=== PATIENT | female | born 1995 | race Caucasian/White ===

== ENCOUNTER → 2021-07-13 15:34 | Outpatient (CLI) | payer OTHER, MEDICAID, SELFPAY ==
[2021-07-13 16:27] LABS: COVID19 -Nasal RAPID Negative (Negative)
== END ==
PROVIDERS: Visit Provider Nurse Practitioner Family
DX: Z20.822 Contact with and (suspected) exposure to COVID-19 (principal); R11.10 Vomiting, unspecified; R19.7 Diarrhea, unspecified
CPT/HCPCS: 87635

== ENCOUNTER → 2021-10-10 12:57 | Outpatient (ROUT) | payer OTHER, MEDICAID, SELFPAY | PROVIDERS: Visit Provider Nurse Practitioner Obstetrics & Gynecology | DX: Z34.90 Encounter for supervision of normal pregnancy, unspecified, unspecified trimester (principal); Z36.85 Encounter for antenatal screening for Streptococcus B; Z3A.36 36 weeks gestation of pregnancy | CPT/HCPCS: 87081 ==

== ENCOUNTER 2021-10-26 05:15 | Inpatient (IN) | payer OTHER, MEDICAID, SELFPAY ==
--- NOTE | 2021-10-26 06:20 | P.HPOB_ITS ---
OB HPI Date/Time Date of admission: 10/26/21 Date Patient Seen: 10/26/21 Time Patient Seen: 06:00 History of Present Condition Chief complaint: OBS : 1 Para: 0 Estimated Date of Delivery: 11/03/21 Estimated Gestational Age (weeks): 38.6 Narrative: Alena Wynne is a 26 year old female @ [id number]. Has noticed leaking clear/pink fluid since 1350 yesterday. Contractions started last night and slowly progressed in frequency and intensity. Has been breathing through regular contractions since 0400. +FM. No VB. Uncomplicated PN care w/ CNM. Transferred in from [place] @ 27wks EG. Medical history significant for hypertrophic cardiomyopathy with cardiology evaluation @ 34wks-> okay with routine labor/ at [facility]. Received COVID vaccine x2, influenza vaccine, tdap vaccine (08/15/21) and Rhogam (08/15/21) in . No URI sx. History of Present care: good care, initiated at week # (7), number of visits (11) and pounds weight gain (37) Dating criteria: LMP confirmed by 1st trimester US Ultrasounds: normal mid trimester US Obstetrical complications: none Medical complications: cardiovascular (Hypertrophic cardiomyopathy) Preadmission Labs Blood type: A (-) negative -: Antibody screen: negative, GBS status: negative, HBsAG: negative, HIV: negative and RPR/VDLR: negative -: Chlamydia screen: not detected and Gonorrhea screen: not detected -: Rubella: immune and Varicella: immune HCT: 34.3 HCAB: negative Cell-free DNA: DECLINED 1 hr GTT: 96 Evaluation Evaluation Baseline heart rate: 130 Variability: Moderate (11-25) monitor accelerations: Present Monitor Decelerations: Absent Contraction Frequency (minutes): 4 Uterine Contraction Intensity: Moderate Status: Category l Dilation (cm): 2 Effacement (%): 80 Dilation: 1-2 cm Effacement: >/=80% station: -2 Position of cervix: posterior Consistency: medium Zendejas score: 6 PFSH Family History (Updated 10/26/21 @ 07:01 by Allyn Perez CNM) Father Diabetes mellitus Cancer Hypertension Social History Smoking Status: Never smoker Meds Home Medications and Allergies Home Medications Medication Instructions Recorded Confirmed Type No Known Home Medications 07/13/21 10/26/21 History Allergies Allergy/AdvReac Type Severity Reaction Status Date / Time No Known Drug Allergies Allergy Unverified 07/13/21 15:38 Review of Systems Review of Systems ROS: Yes All systems reviewed with the patient and are negative except as otherwise documented OB Exam Resp Effort & Inspection: normal respiratory effort Auscultation: clear to auscultation bilaterally Cardio Rate: regular rate Rhythm: regular rhythm Heart Sounds: S1 normal and S2 normal Presentation: vertex Objective Labs Result Diagrams: 10/26/21 06:18 Labs: SARS-CoV-2: POSITIVE Assessment and Plan Assessment and Plan Assessment and Plan narrative: A: Term nullipara PROM x 16 hours without sx of infection Early labor No indication for GBS prophylaxis COVID POSITIVE Cat I FHR P: Admit routine orders with droplet precautions. Intermittent auscultation. Labor support PRN. Will closely monitor fluid volume status in labor and PP. Reassess in 4-6 hours or agustín, PRN. Will notify OB back-up of patient admit status and POC.
[2021-10-26 06:23] LABS: COVID19 - ADMIT (NP swab/PCR) POSITIVE (Negative)
[2021-10-26 06:33] VITALS: BP 126/79
[2021-10-26 12:04] LABS: Add Manual Diff / Slide Review NO; Basophils Absolute Auto 0 /uL (0-100); Basophils Percent Auto 0.3 % (0-2); Eosinophils Absolute Auto 0 /uL (0-450); Eosinophils Percent Auto 0.1 % (2-4); Hematocrit 36.8 % (36-46); Hemoglobin 12.3 g/dL (12.0-16.0); Lymphocytes Absolute Auto 2100 /uL (1100-4500); Lymphocytes Percent Auto 14.6 % (25-40); Mean Corpuscular HGB Conc 33.5 % (30-36); Mean Corpuscular Hemoglobin 30.2 PG (26-34); Mean Corpuscular Volume 90.2 fL (80-100); Monocytes Absolute Auto 800 /uL (0-900); Monocytes Percent Auto 5.8 % (3-14); Neutrophils Absolute Auto 11300 /uL (1500-7000); Neutrophils Percent Auto 79.2 % (50-75); Platelet Count 150 X10^3/uL (150-400); Red Blood Cell Count 4.08 X10^6/uL (4.0-5.2); Red Cell Distribution Width 12.9 % (11.6-14.8); White Blood Cell Count 14.2 X10^3/uL (4.5-11.0)
--- NOTE | 2021-10-26 12:12 | PM.OBPNLAB ---
Date/Time Date Patient Seen: 10/26/21 Time Patient Seen: 12:13 Pain Control Comments: States contractions have slowedand is now open to labor augmentation. VS: BP 121/66, HR 101, T 98.2F Pelvic Exam Dilation (cm): 2 Effacement (%): 80 station: -2 Amniotic membrane status: Leaking Contractions Contractions on admission: regular Monitor mode: External Pitocin rate (mU/min): 0 Contraction frequency (min): 4 Contraction duration (min): 1 Contraction pattern: Regular Contraction intensity: Moderate Status status: Category l Heart Rate Baseline: 125 Comments: Reassuring FHR by intermittent auscultation Assessment and Plan Assessment: other (PROM, early labor) Plan: begin patient augmentation Comments: Recommend pitocin augmentation and patient consents. Pitocin, per protocol. Reassess in 4 hours or sooner, PRN.
[2021-10-26] MEDS: LACTATED RINGERS 1,000 ML 100 ML IV (12:55)
[2021-10-26] MEDS: OXYTOCIN PREMIX 30 UNIT/500 ML PLAST..BAG IV (13:38)
--- NOTE | 2021-10-26 17:22 | PM.OBPNLAB ---
Date/Time Date Patient Seen: 10/26/21 Time Patient Seen: 17:00 Pain Control Pain control: tolerating well (Ambultaing in room, now breathing through stronger contractions) Comments: VS: BP 121/85, HR 73bpm, T 36.5C Temporal Pelvic Exam Effacement (%): 80 station: -2 Amniotic membrane status: Leaking Comments: CE deferred Contractions Monitor mode: External Pitocin rate (mU/min): 9 Contraction frequency (min): 3 Contraction duration (min): 1 Contraction pattern: Regular Contraction intensity: Moderate Status status: Category l Heart Rate Baseline: 135 Monitor Accelerations: Present Monitor Decelerations: Absent Monitor Variability: Moderate Assessment and Plan Assessment: other (appropaching active labor, pitocin augmentation of PROM) Comments: Continue pitocin titration, per protocol. CE in 2 hours (from beginning of strong contractions). labor support, PRN.
--- NOTE | 2021-10-26 19:42 | PM.OBPNLAB ---
Date/Time Date Patient Seen: 10/26/21 Time Patient Seen: 19:10 Pain Control Pain control: tolerating well (breathing through and moaning with strong contractions) Comments: Sitting up on toilet and CUB chair. VS: 121/85, HR 73bpm, T 36.9C Temporal Pelvic Exam Dilation (cm): 5 Effacement (%): 80 station: -2 Amniotic membrane status: Leaking Contractions Contractions on admission: regular Monitor mode: External Pitocin rate (mU/min): 10 Contraction frequency (min): 3 Contraction duration (min): 1 Contraction pattern: Regular Contraction intensity: Moderate Status status: Category l Heart Rate Baseline: 135 Monitor Accelerations: Present Monitor Decelerations: Absent Monitor Variability: Moderate Assessment and Plan Assessment: active labor Plan: continuous present management Comments: Reassess in 4 hours or sooner, PRN.
--- NOTE | 2021-10-26 20:37 | P.PN_ITS ---
Subjective Subjective Date Patient Seen: 10/26/21 Time Patient Seen: 08:26 Interval history: Called by RN for recurrent variable decelerations. Pt remained sitting up in CUB chair. CNM suggested position change to hands and knees and variable decelerations resolved prior to CNM arrival. Patient continues to breathe through strong, regular contractions, coping well. Now feeling more low back pain. Exam Vital Signs (past 8 hours): BP: 121/85, HR 73bpm, T 36.9C Temporal FHR: baseline 140bpm, moderate variability, accels present, early and variable decelerations present. Ctx: Q 3 minutes, lasting 1 minute, strong. Pitocin @ 10mu/min. Continues to leak scant amounts of clear fluid with moderate bloody show. Manual OB Exam: dilated 5, effaced (90%) and station -2 Presentation: vertex Estimated Weight (lbs): 7 Amniotic Fluid: clear Objective Labs Result Diagrams: 10/26/21 06:18 Labs: Laboratory Results - last 24 hr 10/26/21 10/26/21 10/26/21 05:30 06:18 06:18 WBC 14.2 H RBC 4.08 Hgb 12.3 Hct 36.8 MCV 90.2 MCH 30.2 MCHC 33.5 RDW 12.9 Plt Count 150 Neut % (Auto) 79.2 H Lymph % (Auto) 14.6 L [place] % (Auto) 5.8 Eos % (Auto) 0.1 L Baso % (Auto) 0.3 Neut # (Auto) 78110 H Lymph # (Auto) 2100 [place] # (Auto) 800 Eos # (Auto) 0 Baso # (Auto) 0 SARS-CoV-2 (PCR) Positive H Blood Type A Negative Antibody Screen Negative [facility] Family History (Updated 10/26/21 @ 07:01 by Allyn Perez CNM) Father Diabetes mellitus Cancer Hypertension Social History Smoking Status: Never smoker Assessment & Plan Assessment & Plan narrative: A: Term nulipara Active labor w/ pitocin augmentation PROM x 30 hours without sx of infection Cat II FHR, overall reassuring P: Continue pitocin titration to adequate contraction pattern. Encourage position changes as tolerated by FHR. Reassess in 4 hours or sooner, PRN. Time Spent With Patient Critical Care time: I spent a total of [] minutes of critical care time on this patient's care t dillon; this time is exclusive of procedural time.
[2021-10-26] MEDS: fentaNYL 100 MCG/2 ML INJ IV (21:33)
--- NOTE | 2021-10-27 01:17 | P.PCNOB_ITS ---
Labor & Delivery Delivery date: 10/27/21 Intrapartal Events: None Cervical ripening method: none Induction method: per pitocin protocol Delivery monitor: external FHT and external uterine Route of delivery: Episiotomy description: None L&D Laceration Description: Perineal - 1st Degree Delivery repair: chromic (3.0) Estimated blood loss (mL): 125 Anesthesia Type: Other (Fentanyl IV (single dose)) Complications: Alena labored well with pitocin augmentation (max dose 10mu/min) and a single dose of IV fentanyl. Was presumed complete with spontaneous urge to push @ 1130. Pushed well with coaching and encouragement. NSVB of a vigorous baby boy in MARGOT position, sommersaulted through a double loose nuchal cord. [place] was placed on maternal abdomen for drying and skin to skin. After cessation of pulsation, the cord was double clamped nad cut. Remaining 30 units of pitocin in 500mL LR was increased to 300mL/hr for AMTSL. Cord blood sample was collected. gentle cord traction and single maternal push led to spontaneous, Schultze delivery of an apparently intact placenta, membranes and 3VC. Fundus immediately firm and bleeding stable. Inspection revealed a 1st degree perineal split extending to the anus. Repair was in the usual fashion with 3.0 chromic under 2% lidocaine local. QBL 125mL. Both mother and baby stable and skin to skin as I left the room. [place] Baby 1: gender: Male Presentation: vertex Position: Right Occiput Anterior Placenta delivery description: Spontaneous Cord Vessel Description: 3 Vessels and Nuchal Cord (x2) score (1 min): 9 score (5 min): 9 weight: 2.945 kg Plan for aftercare: Routine care
[2021-10-27] MEDS: KETOROLAC 30 MG/ML VIAL IV (02:04)
[2021-10-27] MEDS: ACETAMINOPHEN 325 MG TABLET 650 MG PO (02:04)
[2021-10-27] MEDS: DERMOPLAST SPRAY 20% 60 ML 1 SPRAY TOP (03:23)
[2021-10-27] MEDS: LANOLIN OINT 7 GM 1 APPLIC TOP (03:23)
[2021-10-27] MEDS: RHO(D) IMMUNE GLOBULIN 1,500 UNIT SYRINGE 1500 UNIT IM (13:07)
[2021-10-27] MEDS: DOCUSATE 100 MG CAPSULE PO (21:09)
--- NOTE | 2021-10-28 07:02 | P.DS_ITS ---
Discharge Providers Provider Date of admission: 10/26/21 05:15 Discharge Date: 10/28/21 Consults: 10/28/21 01:08 Consult to Interpretative Dancer Routine Comment: Discharge provider: Allyn Perez CNM Summary Hospital Course Date Patient Seen: 10/28/21 Time Patient Seen: 07:03 Diagnoses: o70.0 Hospital Course: 1.5 days S/P NSVB. Voiding, ambulating and independently with a nipple shield. Tolerating a general diet. Declining PO pain medication. Bleeding is light, without clots. Eager for discharge to home. Peripartum Data Infant Delivery Method: Natural Vaginal Laceration Description: Perineal - 1st Degree Episiotomy description: None Procedures: o70.0 complications: none [place] 1: Gender: Male Disposition of : home Discharge Diagnosis (1) First degree perineal laceration during delivery: Start Date: 10/27/21 Start Time: 00:31 Status: Acute Status at Discharge Cognitive/behavioral status at discharge: oriented and calm Functional status at discharge: independent ambulation Overall status at discharge: patient is progressing back to baseline Time Spent with Patient Time attestation: Total time spent providing and/or coordinating discharge services: Time spent: Less than 30 minutes Objective Labs Result Diagrams: 10/26/21 06:18 Labs: Laboratory Results - last 24 hr 10/27/21 06:50 Maternal Bleed Negative Exam Vital Signs (past 8 hours): BP 122/75, HR 68bpm, RR 18/min, T 98.2F Other: Fundus firm @ u-1, lochia scant without clots. Perineum well approximated, minimal swelling. Discharge Plan Discharge Plan Patient Disposition: Home Discharge orders & Medications Prescriptions: New ibuprofen 600 mg Tablet 600 mg PO Q6HR PRN (Reason: Pain, Mild (1-3)) 14 Days Qty: 60 0RF No Action No Known Home Medications 0RF Follow up/Referrals: Allyn Perez CNM [[employer]] - (Follow-up by telehealth 11/09/21 @ 10:30 Follow-up in office 12/07/21 @ 0900) Diet/Activity/Treatments Diet: Diet as Tolerated and Regular Activity: pelvic rest x 6 weeks Skin/Wound/Dressing Care Report to your healthcare provider any signs of infection, such as:: chills, fever, increased pain, unusual drainage and unusual redness Visit Report/Discharge Packet Instructions: Depression
[2021-10-28 07:56] VITALS: BP 116/78; PULSE 57; RESP 16; TEMP 36.7
== END 2021-10-28 10:00 | disposition home or self-care (01) | DRG 560 ==
PROVIDERS: Admitting Provider Nurse Practitioner Obstetrics & Gynecology; Referring Provider Nurse Practitioner Obstetrics & Gynecology; Visit Provider Nurse Practitioner Obstetrics & Gynecology
DX: O42.12 Full-term premature rupture of membranes, onset of labor more than 24 hours following rupture (principal); O98.52 Other viral diseases complicating childbirth; U07.1 COVID-19; O99.42 Diseases of the circulatory system complicating childbirth; I25.10 Atherosclerotic heart disease of native coronary artery without angina pectoris; I42.2 Other hypertrophic cardiomyopathy; Z37.0 Single live birth; O76 Abnormality in fetal heart rate and rhythm complicating labor and delivery; O70.0 First degree perineal laceration during delivery; Z3A.38 38 weeks gestation of pregnancy
CPT/HCPCS: 36415; 59050; 85025; 85461; 86850; 86900; 86901; 87635; C9803; G0379; J1885; J2590; J2790; J3010

== ENCOUNTER → 2024-09-08 13:30 | Outpatient (CLI) | payer OTHER, MEDICAID, SELFPAY ==
[2024-09-09 13:44] LABS: Strep Grp B PCR NEG for Grp B Strep
== END ==
PROVIDERS: Visit Provider Obstetrics & Gynecology
DX: Z34.93 Encounter for supervision of normal pregnancy, unspecified, third trimester (principal); Z3A.36 36 weeks gestation of pregnancy
CPT/HCPCS: 87653

== ENCOUNTER 2024-09-17 16:36 | Observation (INO) | payer OTHER, SELFPAY | END 2024-09-17 17:10 | disposition home or self-care (01) | LOC: LABOR 16:37 | PROVIDERS: Admitting Provider Obstetrics & Gynecology; Referring Provider Obstetrics & Gynecology; Visit Provider Obstetrics & Gynecology | DX: O99.413 Diseases of the circulatory system complicating pregnancy, third trimester (principal); Z3A.38 38 weeks gestation of pregnancy | CPT/HCPCS: 59025; G0378; G0379 ==

== ENCOUNTER 2024-09-19 08:59 | Outpatient (CLI) | payer OTHER, SELFPAY ==
--- NOTE | 2024-09-19 09:25 | DI.US.S_ITS ---
PROCEDURE: US OB LIMITED INDICATIONS: DAVID OUTSIDE/PRIOR DATING DATA: Last menstrual period (LMP): Not to known LMP-based estimated date of delivery (ARNOLDO): Not applicable First dating scan (date and location): September 17, 2024 at [facility]. Estimated date of delivery (ARNOLDO) from first dating scan: October 02, 2024 TECHNIQUE: Real-time scanning was performed of the fetus, with image documentation. Endovaginal scanning: Performed COMPARISON: [facility], , OB >= 14 WEEKS FETUS, 09/17/2024, 16:30. FINDINGS: A single living intrauterine gestation is present. Presentation: Vertex. Placenta: Placental position is anterior left, without previa. Amniotic fluid index: 8.8 cm, normal range is 5-24 cm. Single deepest vertical pocket is 3.6 cm. heart rate: 125 beats per minute. Maternal cervical canal: Closed and 4.8 cm long. Normal lower limit is 2.5 cm. Estimated gestational age from initial scan: : 38 weeks 3 days. IMPRESSION: Single living intrauterine . Amniotic fluid index 8.8 centimeters. Dictated by: Monique Alatorre MD, PhD on 09/19/2024 at 12:55 Approved by: Monique Alatorre MD, PhD on 09/19/2024 at 12:59
== END 2024-09-19 10:45 | disposition home or self-care (01) ==
LOC: LABOR 10:27 → OB 09-22 06:26
PROVIDERS: Referring Provider Obstetrics & Gynecology; Visit Provider Obstetrics & Gynecology
DX: O99.413 Diseases of the circulatory system complicating pregnancy, third trimester (principal); I99.9 Unspecified disorder of circulatory system; Z3A.38 38 weeks gestation of pregnancy
CPT/HCPCS: 59025; 76815; G0378; G0379

== ENCOUNTER 2024-09-22 07:44 | Outpatient (CLI) | payer OTHER, SELFPAY | END 2024-09-22 08:50 | disposition home or self-care (01) | LOC: LABOR 07:47 → OB 09-23 08:08 | PROVIDERS: Referring Provider Obstetrics & Gynecology; Visit Provider Obstetrics & Gynecology | DX: O99.413 Diseases of the circulatory system complicating pregnancy, third trimester (principal); Z3A.38 38 weeks gestation of pregnancy | CPT/HCPCS: 59025; G0378; G0379 ==

== ENCOUNTER 2024-09-23 11:38 | Observation (INO) | payer OTHER, SELFPAY ==
--- NOTE | 2024-09-23 15:18 | PM.OBTRLD ---
Visit Information Visit Information Date of evaluation: 09/23/24 Primary OB Provider: Paula Kelly Reason for Evaluation: Yes rupture of membranes Comments/Additional reasons for admission: Patient is a 29 year old who presents with SROM with clear amniotic fluid at 1945 last evening. She reports that the fluid was clear and without any odor. She initially had irregular contractions, but then they became regular. At about 4am, they began spacing out. No vaginal bleeding. Good movement. She reports that she was putting her child to bed and felt a gush. She continued to leak through the night. Had a pad on. Vital Signs Vital Signs: Temp 37.2 Pulse 78 BP 146/83 [facility] Medical History (Updated 09/08/24 @ 13:29 by Paula Kelly MD) First degree perineal laceration during delivery Surgical History (Updated 07/09/24 @ 13:21 by Marine Clark RN) History of surgical removal of ganglion cyst (~2018) [place] teeth extracted Family History (Updated 07/09/24 @ 13:25 by Marine Clark, RN) Father Diabetes mellitus Hypertension Grandfather Pancreatic cancer Grandmother Melanoma Breast cancer Mother Hypertrophic cardiomyopathy Social History marital status: number of children: 1 household members: spouse and children lives independently: Yes caregiver/support person: Yes housing: house pets and animals: No education level: college occupational status: employed current occupational exposures/hazards: No special milka needs: No travel history: over 6 months ago seatbelt use: always helmet use: Yes water heater temp set < 120 deg: Yes working smoke detector in home: Yes fire extinguisher in home: Yes carbon monox detector in home: Yes firearms in home: Yes firearms unloaded and locked: Yes do you feel safe at home: Yes Smoking Status: Never smoker second hand exposure: No alcohol intake: former substance use type: does not use during the past year weight has: decreased > 10 lbs well-balanced diet: daily or most days daily servings fruits/ve or more times/day caffeine: Yes (small cup coffee in AM) Type(s) of exercise: aerobic, regular exercise and weight lifting Exam Narrative Exam Narrative: Gen: Patient sitting up in bed, talking, NAD Vagina: Sterile speculum placed. No pooling. Vagina appears dry. VE: 2cm/85/-1/soft Bedside Ultrasound: 2 small pockets of fluid. DAVID 3.08cm. Vertex DAVID 09/22/24 was 8.8cm Evaluation Evaluation Baseline heart rate: 125 Variability: Moderate (11-25) monitor accelerations: Present Monitor Decelerations: Absent Uterine Contraction Intensity: Mild Status: Category l Cervical dilation (cm): 2 Cervical effacement (%): 85 station: -1 Non-invasive Membranes Rupture Test: negative (x 2) Diagnosis, Plan/Disposition Plan/Disposition Plan: Assessment: 29 year old at 39 weeks gestation with a story consistent with SROM and even though amnisure negative, has an DAVID also c/w SROM Patient in early labor Hypertrophic cardiomyopathy on Metoprolol 12.5mg BID Had one episode of asymptomatic V Tach on extensive monitoring by Cardiology Plan: We had previously discussed the recommendations of MFM and Cardiology and their recommendation to deliver at with cardiac monitoring during labor. We reiterated this to the patient and her . Patient and expressed their desire to deliver here in [place]. They do not want to go to . We discussed plan to check in at 22 hours of rupture. Again, we recommend to go to and deliver there. Patient and wish to go home. We discussed the risks of delivering at a Level 1 hospital without the capability of doing cardiac monitoring durin labor and , including heart failure, myocardial infarction and subsequent . OB Disposition: home
== END 2024-09-23 12:48 | disposition home or self-care (01) ==
LOC: AC 11:41 → LABOR 11:45
PROVIDERS: Admitting Provider Obstetrics & Gynecology; Referring Provider Obstetrics & Gynecology; Visit Provider Obstetrics & Gynecology
DX: O99.413 Diseases of the circulatory system complicating pregnancy, third trimester (principal); I42.2 Other hypertrophic cardiomyopathy; Z3A.39 39 weeks gestation of pregnancy
CPT/HCPCS: 59025; 84112; G0378; G0379

== ENCOUNTER 2024-09-23 19:13 | Inpatient (IN) | payer OTHER, SELFPAY ==
--- NOTE | 2024-09-23 20:21 | P.HPOB_ITS ---
OB HPI Date/Time Date of admission: 09/23/24 Date Patient Seen: 09/23/24 Time Patient Seen: 19:50 History of Present Condition Chief complaint: Labor ARNOLDO Calculator Estimated Delivery Date Method Current WG Current Estimate 09/30/24 Manual 39w 0d 8week US, c onfirmed 20 week Estimated Gestational Age (weeks): 39 : 2 Para: 1 care: good care, initiated at week # (8), number of visits (12 + MFM and cardiology) and pounds weight gain (31) Dating criteria OB: LMP confirmed by 1st trimester US Ultrasounds: normal 1st trimester US and normal mid trimester US Obstetrical complications: none Medical complications OB: cardiovascular (hypertrophic cardiomyopathy) Preadmission Labs Last OB Lab Results: Blood Type A Negative 10/26/21 06:18 Antibody Screen Negative 10/26/21 06:18 Hct 36.8 % (36-46) 10/26/21 06:18 Hgb 12.3 g/dL (12.0-16.0) 10/26/21 06:18 Group B Strep (PCR) Neg for grp b strep 09/08/24 13:20 -: Chlamydia screen: negative and Gonorrhea screen: negative Genetic Screens: Quad screen: Normal External Labs Blood type OB HPI: A (-) negative -: Antibody screen: negative, HBsAG: negative, HIV: negative, RPR/VDLR: negative, Chlamydia screen: negative and Gonorrhea screen: negative -: Rubella: immune and Varicella: immune HCAB: negative Genetic Screens: Quad screen: Normal Glucose Tolerance Testin hr (99) Prior (ies) Past Pregnancies Del. Date GA/Weeks Labor Lgth Wt Sex Route Outcome Anesthesia Place Delv Breastfeed Preg Comp Name 10/27/21 39 20 6 lb 8 oz Male vaginal live - full term none IH 2+ years none Han Evaluation Evaluation Baseline heart rate: 125 Variability: Moderate (11-25) monitor accelerations: Present Monitor Decelerations: Absent Contraction Frequency (minutes): 3 Uterine Contraction Intensity: Strong/Firm Status: Category l Comments: Patient with her pants on, unable to do vaginal exam PFSH Medical History (Updated 09/08/24 @ 13:29 by Paula Kelly MD) First degree perineal laceration during delivery Surgical History (Updated 07/09/24 @ 13:21 by Marine Clark RN) History of surgical removal of ganglion cyst (~2019) [place] teeth extracted Family History (Updated 07/09/24 @ 13:25 by Marine Clark RN) Father Diabetes mellitus Hypertension Grandfather Pancreatic cancer Grandmother Melanoma Breast cancer Mother Hypertrophic cardiomyopathy Social History marital status: number of children: 1 household members: spouse lives independently: Yes caregiver/support person: Yes housing: house pets and animals: No education level: college occupational status: employed current occupational exposures/hazards: No special milka needs: No travel history: over 6 months ago seatbelt use: always helmet use: Yes water heater temp set < 120 deg: Yes working smoke detector in home: Yes fire extinguisher in home: Yes carbon monox detector in home: Yes firearms in home: Yes firearms unloaded and locked: Yes do you feel safe at home: Yes Smoking Status: Never smoker second hand exposure: No alcohol intake: former substance use type: does not use during the past year weight has: decreased > 10 lbs well-balanced diet: daily or most days daily servings fruits/ve or more times/day caffeine: Yes (small cup coffee in AM) Type(s) of exercise: aerobic, regular exercise and weight lifting Meds Home Medications and Allergies Home Medications Medication Instructions Recorded Confirmed Type aspirin 81 mg tablet,delayed 81 mg PO DAILY 07/09/24 09/23/24 History release (Adult Low Dose Aspirin) metoprolol tartrate 25 mg tablet 12.5 mg PO BID 07/09/24 09/22/24 History omeprazole 20 mg tablet,delayed 20 mg PO DAILY 07/09/24 09/23/24 History release [id number] antigen-[id number] 0.5 ml IM ONCE #1 ea 07/14/24 09/22/24 Rx adjuvant(PF) 120 mcg/0.5 mL IM suspension, kit Allergies Allergy/AdvReac Type Severity Reaction Status Date / Time No Known Drug Allergies Allergy Verified 09/22/24 09:00 OB Exam Narrative Exam Narrative: Generally: Patient is standing at bedside, breathing through contractions Cardiovascular: RRR Cardio Rate: regular rate Rhythm: regular rhythm OB/External & Speculum: Uterus Location (Fundal Height): 39 Presentation: vertex Assessment and Plan Assessment and Plan Assessment and Plan narrative: Assessment: 29-year-old 2 para 1 at 39 weeks' gestation in active labor Status post spontaneous rupture of membranes 24 hours ago, no signs or symptoms of chorioamnionitis Hypertrophic cardiomyopathy on metoprolol Plan: Anticipate spontaneous vaginal delivery Cardiac monitoring during labor, delivery, and 24 hours Time-Based Coding :: [TOTAL MINUTES] spent with patient and on the chart (including review of chart, obtaining history, exam, reviewing outside data, placing orders, documenting exam and treatment plan, and counseling patient) on [DATE].
[2024-09-23 20:26] VITALS: BP 120/60
--- NOTE | 2024-09-23 21:32 | EKG_ITS ---
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
--- NOTE | 2024-09-23 21:49 | PM.OBPRVD ---
Events: Premature Rupture Membrane and Prolonged Rupture Membrane Labor & Delivery Delivery date: 09/23/24 Delivery Time: 20:44 Intrapartal Events: None Cervical ripening method: none Induction method: none Delivery monitor: external FHT and external uterine Route of delivery: Episiotomy description: None L&D Laceration Description: Perineal - 2nd Degree and Vaginal - 2nd Degree Delivery repair: vicryl and chromic Quantitative Blood Loss: 625 Anesthesia Type: Local (for repair only) Complications: None Narrative: Patient complete and pushed for 9 minutes. At 20:44, a live female delivered spontaneously in the [place] presentation, over an intact perineum. No nuchal cord. The remainder of the body delivered without difficulty and was placed on mom's abdomen. Pitocin was given in the IV fluids. The cord was double clamped and cut after it stopped pulsing. Cord bloods were obtained. The placenta delivered intact with a three-vessel cord at 20:55. The fundus was massaged to firm. A second-degree vaginal/perineal laceration was repaired after 10 cc of 1% lidocaine were injected. Hemostasis was achieved. Apgars 8 at 1 minute and 9 at 5 minutes. weight: 6 lb 5.2 oz. local analgesia only for repair. . Mom and infant stable to recovery. Baby 1: gender: Female Presentation: vertex Position: Left Occiput Anterior Placenta delivery description: Spontaneous Cord Vessel Description: 3 Vessels score (1 min): 8 score (5 min): 9 weight: 6 lb 5.2 oz Plan for aftercare: Routine care
[2024-09-23 21:58] LABS: Add Manual Diff / Slide Review NO; Basophils Absolute Auto 0 /uL (0-100); Basophils Percent Auto 0.1 % (0-2); Eosinophils Absolute Auto 0 /uL (0-450); Eosinophils Percent Auto 0.1 % (2-4); Hematocrit 37.4 % (36-46); Hemoglobin 12.5 g/dL (12.0-16.0); Lymphocytes Absolute Auto 2300 /uL (1100-4500); Mean Corpuscular HGB Conc 33.3 % (30-36); Mean Corpuscular Volume 90.1 fL (80-100); Monocytes Absolute Auto 1000 /uL (0-900); Monocytes Percent Auto 6.1 % (3-14); Neutrophils Absolute Auto 13100 /uL (1500-7000); Neutrophils Percent Auto 79.7 % (50-75); Platelet Count 231 X10^3/uL (150-400); Red Blood Cell Count 4.16 X10^6/uL (4.0-5.2); Red Cell Distribution Width 13.9 % (11.6-14.8); White Blood Cell Count 16.4 X10^3/uL (4.5-11.0)
[2024-09-23 22:28] LABS: Alanine Aminotransferase 22 IU/L (<35); Albumin 3.4 g/dL (3.5-5.0); Alkaline Phosphatase 154 U/L (38-126); Aspartate Aminotransferase 35 IU/L (14-36); BUN Creatinine Ratio 12.1 (6-22); Bilirubin Total 0.8 mg/dL (0.2-1.3); Blood Urea Nitrogen 8 mg/dL (7-17); Calcium 8.6 mg/dL (8.4-10.2); Carbon Dioxide 18 mmol/L (22-32); Chloride 105 mmol/L (98-107); Estimated Glomerular Filt Rate > 60 mL/min (>60); Globulin 3.3 g/dL (1.7-4.1); Glucose 157 mg/dL (70-100); HEMOLYSIS < 15 (0-50); Magnesium 1.4 mg/dL (1.6-2.3); Potassium 3.9 mmol/L (3.4-5.1); Sodium 128 mmol/L (137-145); Total Protein 6.7 g/dL (6.3-8.2)
[2024-09-23] MEDS: IBUPROFEN 600 MG TABLET PO (23:00)
[2024-09-23] MEDS: DERMOPLAST SPRAY 20% 60 ML 1 SPRAY TOP (23:00)
[2024-09-23] MEDS: LANOLIN OINT 7 GM 1 APPLIC TOP (23:01)
[2024-09-23] MEDS: WITCH HAZEL/GLYCERIN PADS 1 EACH TOP (23:01)
[2024-09-24] VITALS (19 sets, daily range): BP systolic 101–133; BP diastolic 55–77; PULSE 59–81; RESP 16–29; TEMP 36.7–37; O2SAT 96–99
[2024-09-24 02:47] LABS: MRSA (Nasal) PCR NOT DETECTED (Not Detect)
[2024-09-24] MEDS: ACETAMINOPHEN 325 MG TABLET 650 MG PO (04:45)
[2024-09-24 06:24] LABS: Hematocrit 31.4 % (36-46); Hemoglobin 10.8 g/dL (12.0-16.0)
[2024-09-24 06:52] LABS: BUN Creatinine Ratio 13.8 (6-22); Blood Urea Nitrogen 8 mg/dL (7-17); Calcium 8.4 mg/dL (8.4-10.2); Carbon Dioxide 18 mmol/L (22-32); Chloride 105 mmol/L (98-107); Estimated Glomerular Filt Rate > 60 mL/min (>60); Glucose 91 mg/dL (70-100); HEMOLYSIS < 15 (0-50); Magnesium 1.6 mg/dL (1.6-2.3); Potassium 4.2 mmol/L (3.4-5.1); Sodium 129 mmol/L (137-145)
--- NOTE | 2024-09-24 06:53 | PC.NURSE ---
Shift Note-Patient brought to ICU from [facility] for cardiac monitoring at 0040. A/Ox4. NSR, occasionally bradycardic 56 while resting, BP stable -see vital trends. RA sats > 97%, lungs sounds clear with slight coarseness. Voided in BC prior to coming to ICU, has denied urge to urinate since. and baby in room. L/D RN in ICU to address care.
[2024-09-24] MEDS: MAGNESIUM CHLORIDE 64 MG TABLET 128 MG PO (08:57)
[2024-09-24] MEDS: METOPROLOL IR 25 MG TABLET PO ×2 (08:57→20:29)
[2024-09-24] MEDS: ASPIRIN EC 81 MG TABLET PO (08:57)
--- NOTE | 2024-09-24 09:56 | PM.ICURNDS ---
- Date Patient Seen: 09/24/24 Time Patient Seen: 09:56 :: This patient was seen via real time interactive two-way audiovisual telecommunication. Note: See Dr Fields's H&P- it is in paper chart per down time procedures Patient remains in ICU for monitoring post delivery given her h/o HCM She is sleeping comfortably this am, HR in 70's in SR She has received her metoprolol dose, RN encouraging her to drink fluids while awake Her BP has been normal She will stay in icu for monitoring for 24 hrs post delivery and can likely be downgraded or discharged tomorrow am per OB team, if she remains hemodynamically stable Ludmila Florian MD
--- NOTE | 2024-09-24 14:38 | CM.DANOTE ---
Patient is a 29 yo female who was admitted INPT Status on 09/23/24 for VTach. Pt has [employer] for insurance and her PCP is not listed. EMR was reviewed. Per OBGYN, pt delivered healthy but pt has hx of cardiomyopathy and was tachy and admitted to ICU for medication tx and monitoring and 24 hours and then possible discharge tonight or tomorrow 09/25 morning. Per RN, pt has been independent in room, tolerating diet, and had visitors. SW met briefly bedside with pt, spouse, baby and explained role and they confirm they live in [place] and both are active and independent at baseline and pt drives. Parents and pt's 2 yo son arrived for visit as well and pt confirms she has support at d/c and their preference is home when stable and no anticipated discharge planning needs at this time. Plan: SW to follow for plan of discharge home when medically stable tonight vs tomorrow via family POV and outpt f/u. YASMEEN Cool Discharge Planning/Care Management CM Discharge Assessment Start: 09/24/24 14:36 Freq: Status: Active Protocol: Document 09/24/24 14:36 BF (Rec: 09/24/24 14:38 BF [id number]) Discharge Planning Assessment Assigned Drill Foreman YASMEEN Jacobs DPOA/Assigned Designee Name informally spouse Thaddeus Contact Information [phone] Advance Directives? No Advance Directives on File No History Provided By Patient,Family Member, Significant Other,Medical Record Has Patient been admitted in last 30 Yes days? Comment Delivered healthy baby yesterday 09/23/24 before being admitted upstairs to ICU Prior Living Arrangements House Household Members spouse,children Type of transporation used prior to Drives own vehicle admit Independent with ADL's Yes Is patient alert and oriented? Yes Caregiver for Another Yes: and 2 yo Barriers to Discharge No Discharge Plan Home Transportation Arrangement Likely spouse or parents Referrals Initiated None needed Whiteboard Updated in Patient Room with Yes name and ext. # of Drill Foreman Review Status In Process Please Provide Date Initial DC 09/24/24 Assessment Was Performed Next Review Type Continued Stay Review
[2024-09-24] MEDS: IBUPROFEN 600 MG TABLET PO (14:46)
--- NOTE | 2024-09-24 19:00 | PC.NURSE ---
Day Shift Pt alert and oriented x4. Baby is in room throughout shift. SR in the 70-80s at rest, up to 150s this morning with activity. Metoprolol ordered (home dose of 25 mg) by Dr. Kelly and administered. HR much improved with activity post medication, max 120s. Pt denies shortness of breath, denies dizziness, denies chest pain. Encouraged to drink lots of fluids. Pt to discharge at [address] Kelly. Discharge instructions on heart failure, vaginal delivery, and home meds. All questions answered.
--- NOTE | 2024-09-24 22:06 | PC.NURSE ---
Pt discharged 09/24 @2109 with spouse to home via POV. All pt belongings confirmed are with pt, IV removed, tele box and leads removed. Reviewed child car seat safety with pt and spouse, pt accompanied by center MMD UNIT TEACHER to POV at time of discharged.
--- NOTE | 2024-09-25 07:48 | CM.DPC ---
DCP Discharge Home Per OBGYN and RN, pt was stable after 24 hours to discharge home last night 09/24/24 after SW shift and spouse was bedside for transport and and no concerns or discharge needs. YASMEEN Cool
--- NOTE | 2024-10-06 06:32 | PM.OBDS.1 ---
Discharge Providers Provider Date of admission: 09/23/24 19:13 Discharge Date: 09/24/24 Primary care physician: Doctor Arturo MD Consults: 09/23/24 20:34 Consult to Anesthesiology Urgent Comment: Consulting Provider: Anesthesiologist Reason for consultation: Epidural Discharge provider: Paula Kelly MD Summary Hospital Course Date Patient Seen: 09/24/24 Time Patient Seen: 17:45 Diagnoses: Thirty-nine weeks' gestation Spontaneous vaginal delivery Premature rupture of membranes Prolonged rupture of membranes Second-degree perineal/vaginal laceration Hospital Course: Patient is a 29-year-old 2 para 2 who presented on September 23, 2024 in active labor after 24 hours of ruptured membranes. She progressed quickly to complete dilation. She had a spontaneous vaginal delivery without complication. She was on a residential specialist during the labor and delivery. After 4 hours of recovery on labor and delivery she was transferred to the intensive care unit due to the hypertrophic cardiomyopathy. She was monitored there for 24 hours without incident. Patient had the desire to go home after 24 hours of monitoring. She was discharged home on September 24, 2024. She was instructed to call with fever, chills, bleeding vaginally more than a pad in an hour, chest pain, dizziness or fainting, or feeling irregular heartbeat. Peripartum Data Delivery Method: Natural Vaginal Laceration Description: Perineal - 2nd Degree and Vaginal - 2nd Degree Episiotomy description: None Procedures: Spontaneous vaginal delivery Second-degree perineal/vaginal laceration repair Cardiac monitoring during labor and 24 hours complications: none [place] 1: Gender: Female Disposition of : home Status at Discharge Cognitive/behavioral status at discharge: oriented Functional status at discharge: independent ambulation Overall status at discharge: patient is progressing back to baseline Time Spent with Patient Time attestation: Total time spent providing and/or coordinating discharge services: Time spent: Less than 30 minutes Objective Labs 09/24/24 05:05 09/24/24 05:05 Exam Vital Signs (past 8 hours): Oxygen Delivery Method Room Air Oxygen Flow Rate 0 Narrative Exam Narrative: Generally: Patient is sitting up in bed, no acute distress Lungs: Clear to auscultation bilaterally Cardiovascular: Regular rate and rhythm Fundus: Firm at U -1 Extremities: Trace edema, negative Homans Discharge Plan Discharge Plan Patient Disposition: Home Provider Discharge Comment: Call with fever, chills, or bleeding vaginally more than a pad in an hour Call with worsening swelling, shortness of breath, dizziness or fainting, feeling irregular heartbeat or chest pain Ibuprofen 600 mg every 6 hours as needed for cramping Tylenol 650 mg every 6 hours as needed Discharge orders & Medications Prescriptions: Continued aspirin [Adult Low Dose Aspirin] 81 mg tablet,delayed release (DR/EC) 81 mg PO DAILY metoprolol tartrate 25 mg tablet 25 mg PO BID Discontinued omeprazole 20 mg tablet,delayed release (DR/EC) 20 mg PO DAILY RSVPreF3 antigen-AS01E (PF) 120 mcg/0.5 mL suspension for reconstitution 0.5 ml IM ONCE Qty: 1 0RF Follow up/Referrals: Paula Kelly MD [Physician] - (My office will call patient tomorrow to schedule a 2 week and 6 week follow-up) Diet/Activity/Treatments Diet: Regular Activity: Nothing in the vagina for 6 weeks Skin/Wound/Dressing Care Report to your healthcare provider any signs of infection, such as:: chills, fever, increased pain and unusual drainage Visit Report/Discharge Packet Instructions: DI for Heart Failure, DI for Labor and Delivery, Vaginal Stand Alone Forms: Congestive Heart Failure, Patient Portal/API, Stroke Signs & Symptoms Discharge Data Primary Care Provider: Miscellaneous,Doctor
== END 2024-09-24 21:10 | disposition home or self-care (01) | DRG 560 ==
LOC: ICU 09-24 08:46 → LABOR 09-24 08:53
PROVIDERS: Internal Medicine Critical Care Medicine; Admitting Provider Obstetrics & Gynecology; Referring Provider Obstetrics & Gynecology; Visit Provider Obstetrics & Gynecology
DX: O42.12 Full-term premature rupture of membranes, onset of labor more than 24 hours following rupture (principal); O99.42 Diseases of the circulatory system complicating childbirth; I42.2 Other hypertrophic cardiomyopathy; Z3A.39 39 weeks gestation of pregnancy; O70.1 Second degree perineal laceration during delivery; Z37.0 Single live birth
CPT/HCPCS: 36415; 59025; 59050; 59409; 80048; 80053; 83735; 84112; 85014; 85018; 85025; 86850; 86900; 86901; 87797; 93005; G0378; G0379